=== PATIENT | male | born 1980 | race Caucasian/White ===

== ENCOUNTER 2018-06-04 22:53 | Emergency (ER) | payer SELFPAY ==
[2018-06-04 23:16] VITALS: RESP 18; O2SAT 98; BMI 25.7
--- NOTE | 2018-06-05 01:03 | ED PDOC ---
Arrival/HPI - General Chief Complaint: ENT Problem Time Seen by Provider: 06/04/18 23:18 Historian: Patient - History of Present Illness Narrative History of Present Illness (Text): Willian Holm is a 37 year old male, whose past medical history includes diabetes, who presents to the emergency department after having a reaction to Cetirizine. Patient states he usually feels itchy secondary to allergies and took Cetirizine tonight. Patient states he subsequently began experiencing dry throat with associated dizziness and feeling fatigue after taking the medication. Patient notes he feels much better but was concerned and came to the emergency department for further evaluation. Patient denies any palpitations, chest pain, abdominal pain, shortness of breath, nausea, vomiting, headache, dizziness currently, or any other complaints. Symptom Onset: Gradual Symptom Course: Unchanged Activities at Onset: Light Context: Work Past Medical History - Provider Review Nursing Documentation Reviewed: Yes - Infectious Disease Hx of Infectious Diseases: None - Tetanus Immunization Tetanus Immunization: Unknown - Past Medical History Past Medical History: No Previous - Endocrine/Metabolic Hx Diabetes Mellitus Type 2: Yes - Psychiatric Hx Psychophysiologic Disorder: No Hx Anxiety: No Hx Bipolar Disorder: No Hx Depression: No Hx Emotional Abuse: No Hx Hallucinations: No Hx Panic Disorder: No Hx Post Traumatic Stress Disorder: No Hx Psychosis: No Hx Physical Abuse: No Hx Schizophrenia: No Hx Sexual Abuse: No Hx Substance Use: No - Past Surgical History Past Surgical History: No Previous - Anesthesia Hx Anesthesia: No Hx Anesthesia Reactions: No Hx Malignant Hyperthermia: No - Suicidal Assessment Feels Threatened In Home Enviroment: No Family/Social History - Physician Review Nursing Documentation Reviewed: Yes Family/Social History: Unknown Family HX Smoking Status: Never Smoked Hx Alcohol Use: No Hx Substance Use: No Hx Substance Use Treatment: No Allergies/Home Meds Allergies/Adverse Reactions: Allergies No Known Allergies Allergy (Verified 05/31/14 16:22) Review of Systems - Physician Review All systems were reviewed & negative as marked: Yes - Review of Systems Constitutional: Normal. absent: Fevers Eyes: Normal ENT: Other (+dry throat) Respiratory: Normal Cardiovascular: Palpitations Gastrointestinal: Normal. absent: Abdominal Pain, Diarrhea, Nausea, Vomiting Genitourinary Male: Normal. absent: Dysuria, Frequency, Hematuria, Urinary Output Changes Musculoskeletal: Normal. absent: Back Pain, Neck Pain Skin: Normal. absent: Rash Neurological: Dizziness. absent: Headache Endocrine: Diaphoresis Hemo/Lymphatic: Normal Psychiatric: Normal Physical Exam Vital Signs Reviewed: Yes Vital Signs Pulse Resp BP Pulse Ox 06/04/18 23:11 90 18 128/89 98 Temperature: Afebrile Blood Pressure: Normal Pulse: Regular Respiratory Rate: Normal Appearance: Positive for: Well-Appearing, Non-Toxic, Comfortable Pain Distress: None Mental Status: Positive for: Alert and Oriented X 3 - Systems Exam Head: Present: Atraumatic, Normocephalic Pupils: Present: PERRL Extroacular Muscles: Present: EOMI Conjunctiva: Present: Normal Mouth: Present: Moist Mucous Membranes Neck: Present: Normal Range of Motion Respiratory/Chest: Present: Clear to Auscultation, Good Air Exchange. No: Respiratory Distress, Accessory Muscle Use Cardiovascular: Present: Regular Rate and Rhythm, Normal S1, S2. No: Murmurs Abdomen: No: Tenderness, Distention, Peritoneal Signs Back: Present: Normal Inspection Upper Extremity: Present: Normal Inspection. No: Cyanosis, Edema Lower Extremity: Present: Normal Inspection. No: Edema Neurological: Present: GCS=15, CN II-XII Intact, Speech Normal Skin: Present: Warm, Dry, Normal Color. No: Rashes Psychiatric: Present: Alert, Oriented x 3, Normal Insight, Normal Concentration Medical Decision Making ED Course and Treatment: Impression: 37 year old male complaining of dizziness, palpitations, diaphoresis, and dry throat after taking Cetirizine. Pt feels better currently Plan: -- EKG -- Fingerstick glucose -- Reassess and disposition Progress Notes: reviewed EKG, NSR at [address]-segment elevations or depressions, no T-wave inversions, normal intervals. Fingerstick glucose: 185. On reevaluation, patient reports no headache, dizziness, CP, SOB, or palpitations. On exam, patient remains awake alert and oriented 3 in no acute distress. Repeat neuro exam shows no focal findings. Advised to follow up with the clinic in 1-2 days without fail. Return to the emergency room at any time for any new or worsening symptoms. Patient states he fully agrees with and understands discharge instructions. States that he agrees with the plan and disposition. Verbalized and repeated discharge instructions and plan. I have given the patient opportunity to ask any additional questions. - EKG Interpretation Interpreted by ED Physician: Yes Type: 12 lead EKG - PA / CELERY CUTTER / Resident Statement MD/DO has reviewed & agrees with the documentation as recorded. - Scribe Statement The provider has reviewed the documentation as recorded by the Carinaiblino Saini Provider Scribe Attestation: All medical record entries made by the Scribe were at my direction and personally dictated by me. I have reviewed the chart and agree that the record accurately reflects my personal performance of the history, physical exam, medical decision making, and the department course for this patient. I have also personally directed, reviewed, and agree with the discharge instructions and disposition. Disposition/Present on Arrival - Present on Arrival Any Indicators Present on Arrival: No History of DVT/PE: No History of Uncontrolled Diabetes: No Urinary Catheter: No History of Decub. Ulcer: No History Surgical Site Infection Following: None - Disposition Have Diagnosis and Disposition been Completed?: Yes Diagnosis: Medication side effect Disposition: HOME/ ROUTINE Disposition Time: 00:45 Patient Plan: Discharge Condition: STABLE Discharge Instructions (ExitCare): Side Effects From Medicines Print Language: KUWAIT[place] Additional Instructions: Thank you for letting us take care of you today. You were treated for medication side effect. The emergency medical care you received today was directed at your acute symptoms. Return to the Emergency Department if your symptoms worsen, do not improve, or if you have any other problems. Please contact your doctor or referral provided in 2 days for re-evaluation and follow up. Bring any paperwork you were given at discharge with you along with any medications you are taking to your follow up visit. Our treatment cannot replace ongoing medical care by a primary care provider (PCP) outside of the emergency department. Thank you for allowing the [facility] team to be part of your care today. Referrals: [facility] at [facility] [place] [Outside] - Follow up with primary Forms: [employer] (Chadian), WORK NOTE
[2018-06-05 01:26] VITALS: BP 112/74; PULSE 80; TEMP 98
--- NOTE | 2018-06-05 20:53 | CARD ---
APPROVED REPORT Date of service: 06/05/2018 EKG Measurement Heart [id number] <Conclusion> Normal sinus rhythm Possible Left atrial enlargement Borderline ECG
== END 2018-06-05 00:50 | disposition home or self-care (01) ==
LOC: ED 22:53
DX: R42 Dizziness and giddiness (principal); R53.83 Other fatigue; T45.0X5A Adverse effect of antiallergic and antiemetic drugs, initial encounter; E11.9 Type 2 diabetes mellitus without complications

== ENCOUNTER 2018-07-17 20:55 | Observation (INO) | payer MEDICAID, OTHER ==
[2018-07-17 21:05] VITALS: BMI 28.3
--- NOTE | 2018-07-17 21:48 | ED PDOC ---
Arrival/HPI - General Chief Complaint: Chest Pain Time Seen by Provider: 07/17/18 21:14 Historian: Patient - History of Present Illness Narrative History of Present Illness (Text): 07/17/18 21:37 37 y/o M with PMh of diabetes presents with cc of intermittent chest discomfort w/ palpations throughout today. Patient reports that he took a green pill earlier today that was meant to treat an upset stomach. The green pill provided no relief. Patient denies any fevers, chills, headache, dizziness, shortness of breath, dyspnea on exertion, cough, diaphoresis, abdominal pain, nausea, vomiting, diarrhea, back pain, neck pain, or any other complaint. Time/Duration: 24 hours Symptom Onset: Gradual Symptom Course: Intermittent Activities at Onset: Light Context: Home Past Medical History - Provider Review Nursing Documentation Reviewed: Yes - Infectious Disease Hx of Infectious Diseases: None - Tetanus Immunization Tetanus Immunization: Unknown - Past Medical History Past Medical History: No Previous - Cardiac Hx Cardiac Disorders: No - Pulmonary Hx Respiratory Disorders: No - Neurological Hx Neurological Disorder: No - HEENT Hx HEENT Disorder: No - Renal Hx Renal Disorder: No - Endocrine/Metabolic Hx Diabetes Mellitus Type 2: Yes - Hematological/Oncological Hx Blood Disorders: No - Musculoskeletal/Rheumatological Hx Musculoskeletal Disorders: No - Gastrointestinal Hx Gastrointestinal Disorders: No - Genitourinary/Gynecological Hx Genitourinary Disorders: No - Psychiatric Hx Psychophysiologic Disorder: No Hx Anxiety: No Hx Bipolar Disorder: No Hx Depression: No Hx Emotional Abuse: No Hx Hallucinations: No Hx Panic Disorder: No Hx Post Traumatic Stress Disorder: No Hx Psychosis: No Hx Physical Abuse: No Hx Schizophrenia: No Hx Sexual Abuse: No Hx Substance Use: No - Past Surgical History Past Surgical History: No Previous - Anesthesia Hx Anesthesia: No Hx Anesthesia Reactions: No Hx Malignant Hyperthermia: No - Suicidal Assessment Feels Threatened In Home Enviroment: No Family/Social History - Physician Review Nursing Documentation Reviewed: Yes Family/Social History: No Known Family HX Smoking Status: Never Smoked Hx Alcohol Use: No Hx Substance Use: No Hx Substance Use Treatment: No Allergies/Home Meds Allergies/Adverse Reactions: Allergies No Known Allergies Allergy (Verified 05/31/14 16:22) Review of Systems - Physician Review All systems were reviewed & negative as marked: Yes - Review of Systems Constitutional: Normal Eyes: Normal ENT: Normal Respiratory: Normal Cardiovascular: Palpitations (Intermittent ) Gastrointestinal: Normal Genitourinary Male: Normal Musculoskeletal: Normal Skin: Normal Neurological: Normal Endocrine: Normal Hemo/Lymphatic: Normal Psychiatric: Normal Physical Exam Vital Signs Reviewed: Yes Vital Signs Pulse Resp BP Pulse Ox 07/17/18 21:05 94 H 20 141/94 H 96 Temperature: Afebrile Blood Pressure: Normal Pulse: Tachycardic Respiratory Rate: Normal Appearance: Positive for: Well-Appearing, Non-Toxic, Comfortable Pain Distress: Mild Mental Status: Positive for: Alert and Oriented X 3 Finger Stick Blood Glucose: 207 - Systems Exam Head: Present: Atraumatic, Normocephalic Pupils: Present: PERRL Extroacular Muscles: Present: EOMI Conjunctiva: Present: Normal Mouth: Present: Moist Mucous Membranes Neck: Present: Normal Range of Motion Respiratory/Chest: Present: Clear to Auscultation, Good Air Exchange. No: Respiratory Distress, Accessory Muscle Use Cardiovascular: Present: Regular Rate and Rhythm, Normal S1, S2. No: Murmurs Abdomen: No: Tenderness, Distention, Peritoneal Signs Back: Present: Normal Inspection Upper Extremity: Present: Normal Inspection. No: Cyanosis, Edema Lower Extremity: Present: Normal Inspection. No: Edema Neurological: Present: GCS=15, Speech Normal Skin: Present: Warm, Dry, Normal Color. No: Rashes Psychiatric: Present: Alert, Oriented x 3, Normal Insight, Normal Concentration Medical Decision Making ED Course and Treatment: 07/17/18 21:00 Impression: 37 y/o M presents with cc of intermittent chest discomfort w/ palpations throughout today Differential Diagnosis included but are not limited to: -- CAD -- Gastritis -- GERD -- Pneumonia Plan: -- Labs -- EKG -- CXR -- Reassess and disposition Prior Visits: Notes and results from previous visits were reviewed. Progress Notes: 07/17/18 23:34 Case discussed with medical office receptionist and hospitalist, who accepts patient to the hospitalist's service - EKG Interpretation EKG Interpretation (Text): 07/17/18 21:02 EKG: NSR @ [address]/T wave changes. Interpreted by me. Interpreted by ED Physician: Yes Type: 12 lead EKG - PA / [employer] / Resident Statement MD/DO has reviewed & agrees with the documentation as recorded. - Scribe Statement The provider has reviewed the documentation as recorded by the Vidal Bear All medical record entries made by the Vidal were at my direction and personally dictated by me. I have reviewed the chart and agree that the record accurately reflects my personal performance of the history, physical exam, medical decision making, and the department course for this patient. I have also personally directed, reviewed, and agree with the discharge instructions and disposition. Disposition/Present on Arrival - Present on Arrival Any Indicators Present on Arrival: No History of DVT/PE: No History of Uncontrolled Diabetes: No Urinary Catheter: No History of Decub. Ulcer: No History Surgical Site Infection Following: None - Disposition Have Diagnosis and Disposition been Completed?: Yes Diagnosis: Chest pain Disposition: HOSPITALIZED Disposition Time: 23:40 Patient Plan: Observation Condition: STABLE Discharge Instructions (ExitCare): Chest Pain (ED) Referrals: PCP,NO [Primary Care Provider] - Follow up with primary Forms: [employer] (Korean)
[2018-07-17 22:00] LABS: HEMOGLOBIN 13.9 g/dL (14.0-18.0); MEAN CELL VOLUME 83.8 fl (80.0-105.0); MEAN CORPUSCULAR HEMOGLOBIN 28.1 pg (25.0-35.0); MEAN CORPUSCULAR HGB CONC 33.6 g/dl (31.0-37.0); MEAN PLATELET VOLUME 11.5 fl (7.0-11.0); RBC 4.94 10^6/uL (3.5-6.1); RED CELL DISTRIBUTION WIDTH 13.8 % (11.5-14.5); WHITE BLOOD COUNT 9.4 10^3/uL (4.5-11.0)
[2018-07-17 22:06] LABS: INR 1.05; PROTHROMBIN TIME 11.6 SECONDS (9.4-12.5)
[2018-07-17 22:08] LABS: ALB/GLOB RATIO 1.3 (1.1-1.8); ALBUMIN 4.4 g/dL (3.0-4.8); ALT/SGPT 28 U/L (7-56); AST/SGOT 35 U/L (17-59); BLOOD UREA NITROGEN 18 mg/dL (7-21); CALCIUM 9.2 mg/dL (8.4-10.5); GFR NON-AFRICAN AMERICAN > 60
[2018-07-17 22:19] LABS: TROPONIN I < 0.01 ng/mL
[2018-07-18 00:36] VITALS: O2SAT 97
--- NOTE | 2018-07-18 02:11 | CP.PCM.HP ---
<Juliano Alfredo - Last Filed: 07/18/18 03:27> History of Present Illness - History of Present Illness History of Present Illness: PGY-[address] and Physical [address] Mcmillan Patient is a 37 year old male with PMHx DM who presents with complaint of chest pain that began today. Patient states pain is in whole chest, feels like burning sensation, does not radiate to back or shoulders. Patient also states having occasional palpitations which come and go. Patient states he had similar symptoms in May for which he came to ER and was treated and discharged. Patient is a poor historian, accurate history difficult to obtain. Patient denies shortness of breath, abdominal pain, nausea, vomiting. Patient denies smoking, personal or family hx of cardiopulm disease. PMHx: DM All: NKA Surgeries: No prior surgeries Medications: Metformin Family Hx: No known family cardiac or other medical history Social: Denies alcohol, tobacco, drug use. Works in [employer]. PMD: None Present on Admission - Present on Admission Any Indicators Present on Admission: No Review of Systems - Constitutional Constitutional: absent: Chills, Fever - EENT Eyes: absent: Diplopia Ears: absent: Dizziness Nose/Mouth/Throat: absent: Nasal Congestion, Nasal Discharge - Cardiovascular Cardiovascular: Chest Pain, Chest Pain at Rest. absent: Chest Pain with Activity, Dyspnea, Dyspnea on Exertion, Edema, Palpitations - Respiratory Respiratory: absent: Cough, Dyspnea, Hemoptysis - Gastrointestinal Gastrointestinal: absent: Constipation, Diarrhea, Nausea, Vomiting - Genitourinary Genitourinary: absent: Dysuria, Flank Pain - Musculoskeletal Musculoskeletal: absent: Numbness, Stiffness, Tingling - Neurological Neurological: absent: Confusion, Dizziness, Numbness - Psychiatric Psychiatric: absent: Anxiety, Depression Past Patient History - Infectious Disease Hx of Infectious Diseases: None - Tetanus Immunizations Tetanus Immunization: Unknown - Past Social History Smoking Status: Unknown If Ever Smoked - CARDIAC Hx Cardiac Disorders: No - PULMONARY Hx Respiratory Disorders: No - NEUROLOGICAL Hx Neurological Disorder: No - HEENT Hx HEENT Problems: No - RENAL Hx Chronic Kidney Disease: No - ENDOCRINE/METABOLIC Hx Endocrine Disorders: Yes Hx Diabetes Mellitus Type 2: Yes - HEMATOLOGICAL/ONCOLOGICAL Hx Blood Disorders: No - MUSCULOSKELETAL/RHEUMATOLOGICAL Hx Musculoskeletal Disorders: No Hx Falls: No - GASTROINTESTINAL Hx Gastrointestinal Disorders: No - GENITOURINARY/GYNECOLOGICAL Hx Genitourinary Disorders: No - PSYCHIATRIC Hx Psychophysiologic Disorder: No Hx Anxiety: No Hx Bipolar Disorder: No Hx Depression: No Hx Emotional Abuse: No Hx Hallucinations: No Hx Panic Symptoms: No Hx Post Traumatic Stress Disorder: No Hx Psychosis: No Hx Physical Abuse: No Hx Schizophrenia: No Hx Sexual Abuse: No Hx Substance Use: No (denies) - SURGICAL HISTORY Hx Surgeries: No - ANESTHESIA Hx Anesthesia: No Hx Anesthesia Reactions: No Hx Malignant Hyperthermia: No Meds Allergies/Adverse Reactions: Allergies Allergy/AdvReac Type Severity Reaction Status Date / Time No Known Allergies Allergy Verified 05/31/14 16:22 Physical Exam - Constitutional Appears: Non-toxic, No Acute Distress - Head Exam Head Exam: ATRAUMATIC - Eye Exam Eye Exam: EOMI, Normal appearance - ENT Exam ENT Exam: Mucous Membranes Moist - Respiratory Exam Respiratory Exam: Clear to Auscultation Bilateral, NORMAL BREATHING PATTERN. absent: Rhonchi, Wheezes - Cardiovascular Exam Cardiovascular Exam: REGULAR RHYTHM, +S1, +S2 Additional comments: Chest pain non reproducible - no tenderness to palpation - GI/Abdominal Exam GI & Abdominal Exam: Normal Bowel Sounds, Soft. absent: Tenderness - Extremities Exam Extremities exam: Positive for: normal inspection. Negative for: pedal edema, tenderness - Neurological Exam Neurological exam: Alert, CN II-XII Intact, Oriented x3 - Psychiatric Exam Psychiatric exam: Normal Affect, Normal Mood - Skin Skin Exam: Dry, Intact Results - Vital Signs Recent Vital Signs: Last Vital Signs Temp Pulse 80 07/18/18 01:19 Resp 20 07/18/18 01:19 BP 134/81 07/18/18 00:56 Pulse Ox 97 07/18/18 00:56 - Labs Result Diagrams: 07/17/18 21:05 07/17/18 21:05 Labs: Laboratory Results - last 24 hr 07/17/18 07/17/18 07/17/18 21:05 21:05 21:05 WBC 9.4 RBC 4.94 Hgb 13.9 L Hct 41.4 L MCV 83.8 MCH 28.1 MCHC 33.6 RDW 13.8 Plt Count 188 MPV 11.5 H PT 11.6 INR 1.05 APTT 33.0 Sodium 138 Potassium 3.5 L Chloride 105 Carbon Dioxide 23 Anion Gap 14 BUN 18 Creatinine 0.8 Est GFR ( Amer) > 60 Est GFR (Non-Af Amer) > 60 Random Glucose 199 H Calcium 9.2 Total Bilirubin 0.7 AST 35 ALT 28 Alkaline Phosphatase 103 Lactate Dehydrogenase 504 Total Creatine Kinase 181 Troponin I < 0.01 Total Protein 8.0 Albumin 4.4 Globulin 3.5 Albumin/Globulin Ratio 1.3 Assessment & Plan - Assessment and Plan (Free Text) Assessment: Chest pain/Palpitations, rule out ACS -Initial EKG NSR @ [address]/T wave changes. -Chest XR - read pending -Cardiology consult, Dr. Wilcox -f/u recs -F/u serial EKG/ROMIs 0300, 0900 -ASA 81 mg PO daily --ASA 325mg PO given once in ED -TSH/T4 -UDS DM -Home metformin held -ISS -Accuchecks ACHS -Carb consistent diet -Hypoglycemia protocol -A1C - f/u -Lipid panel - f/u PPx -DVT: Lovenox 30 mg SC daily -Carb consistent diet <Alcira Mcmillan - Last Filed: 07/18/18 06:34> Results - Vital Signs Recent Vital Signs: Last Vital Signs Temp Pulse 67 07/18/18 02:00 Resp 20 07/18/18 01:19 BP 134/81 07/18/18 00:56 Pulse Ox 97 07/18/18 00:56 - Labs Result Diagrams: 07/17/18 21:05 07/17/18 21:05 Labs: Laboratory Results - last 24 hr 07/17/18 07/17/18 07/17/18 21:05 21:05 21:05 WBC 9.4 RBC 4.94 Hgb 13.9 L Hct 41.4 L MCV 83.8 MCH 28.1 MCHC 33.6 RDW 13.8 Plt Count 188 MPV 11.5 H PT 11.6 INR 1.05 APTT 33.0 Sodium 138 Potassium 3.5 L Chloride 105 Carbon Dioxide 23 Anion Gap 14 BUN 18 Creatinine 0.8 Est GFR ( Amer) > 60 Est GFR (Non-Af Amer) > 60 POC Glucose (mg/dL) Random Glucose 199 H Calcium 9.2 Total Bilirubin 0.7 AST 35 ALT 28 Alkaline Phosphatase 103 Lactate Dehydrogenase 504 Total Creatine Kinase 181 Troponin I < 0.01 Total Protein 8.0 Albumin 4.4 Globulin 3.5 Albumin/Globulin Ratio 1.3 07/17/18 21:35 WBC RBC Hgb Hct MCV MCH MCHC RDW Plt Count MPV PT INR APTT Sodium Potassium Chloride Carbon Dioxide Anion Gap BUN Creatinine Est GFR ( Amer) Est GFR (Non-Af Amer) POC Glucose (mg/dL) 207 H Random Glucose Calcium Total Bilirubin AST ALT Alkaline Phosphatase Lactate Dehydrogenase Total Creatine Kinase Troponin I Total Protein Albumin Globulin Albumin/Globulin Ratio Attending/Attestation - Attestation I have personally seen and examined this patient.: Yes I have fully participated in the care of the patient.: Yes I have reviewed all pertinent clinical information: Yes Notes (Text): 07/18/18 06:34 seen and examined. Discussed with resident. A&P as above.
[2018-07-18] MEDS ORDERED: Potassium Chloride 40 mEq/30 ml LIQ UD PO ONE (05:08)
[2018-07-18 07:13] LABS: BASO # 0.02 K/mm3 (0.0-2.0); BASO % 0.2 % (0.0-3.0); EOS # 0.2 (0.0-0.7); EOS % 2.9 % (1.5-5.0); HEMOGLOBIN 13.9 g/dL (14.0-18.0); LYMPH # 3.3 (1.2-3.4); LYMPH % 39.6 % (22.0-35.0); MEAN CORPUSCULAR HEMOGLOBIN 27.7 pg (25.0-35.0); MEAN CORPUSCULAR HGB CONC 33.4 g/dl (31.0-37.0); MEAN PLATELET VOLUME 11.8 fl (7.0-11.0); MONO # 0.6 (0.1-0.6); MONO % 7.2 % (1.0-6.0); RBC 5.01 10^6/uL (3.5-6.1); RED CELL DISTRIBUTION WIDTH 13.7 % (11.5-14.5); WHITE BLOOD COUNT 8.3 10^3/uL (4.5-11.0)
[2018-07-18 07:18] LABS: ALB/GLOB RATIO 1.2 (1.1-1.8); ALBUMIN 4.1 g/dL (3.0-4.8); ALT/SGPT 33 U/L (7-56); AST/SGOT 30 U/L (17-59); BLOOD UREA NITROGEN 16 mg/dL (7-21); CALCIUM 9.2 mg/dL (8.4-10.5); GFR NON-AFRICAN AMERICAN > 60; HDL CHOLESTEROL 25 mg/dL (29-60)
[2018-07-18 07:31] LABS: LDL CHOLESTEROL 98 mg/dL (0-129)
[2018-07-18] MEDS: Insulin Regular 1 UNITS/0.01 ML ML SC SCH ×3 (08:06→17:16)
[2018-07-18] MEDS ORDERED: Potassium Chloride 20 mEq/15 ml LIQ UD PO ONE (08:30)
--- NOTE | 2018-07-18 09:21 | RAD ---
Date of service: 07/17/2018 HISTORY: chest pain COMPARISON: No prior. TECHNIQUE: 1 view obtained. FINDINGS: LUNGS: No active pulmonary disease. PLEURA: No significant pleural effusion identified, no pneumothorax apparent. CARDIOVASCULAR: No aortic atherosclerotic calcification present. Normal cardiac size. No pulmonary vascular congestion. OSSEOUS STRUCTURES: No significant abnormalities. VISUALIZED UPPER ABDOMEN: Normal. OTHER FINDINGS: None. IMPRESSION: No active disease.
[2018-07-18 09:31] LABS: TROPONIN I < 0.01 ng/mL
--- NOTE | 2018-07-18 09:31 | CARD ---
APPROVED REPORT Date of service: 07/17/2018 EKG Measurement Heart [id number] <Conclusion> Normal sinus rhythm Normal Electrocardiogram
--- NOTE | 2018-07-18 09:53 | CARD ---
APPROVED REPORT Date of service: 07/18/2018 EKG Measurement Heart [id number] <Conclusion> Normal sinus rhythm Normal ECG
[2018-07-18] MEDS ORDERED: Enoxaparin 30 mg Syringe SC SCH (10:00)
[2018-07-18] MEDS ORDERED: Enoxaparin 40 mg Syringe SC SCH (10:00)
[2018-07-18 12:27] VITALS: BP 125/78; RESP 18; TEMP 98.4
--- NOTE | 2018-07-18 12:57 | CP.PCM.PN ---
<Luis Layne - Last Filed: 07/18/18 12:59> Subjective - Date & Time of Evaluation Date of Evaluation: 07/18/18 Time of Evaluation: 12:54 - Subjective Subjective: Medicine Progress Note for Dr. Li 37M seen and evaluated at bedside this morning. No acute events overnight. Stages his chest pain has improved however complaining of dizziness. Herminio- hallpike done at bedside and found to be positive for BPPV. Upon questioning, cee marcelino states he takes Meclizine but unknown dosage and cannot recall pharmacy name. Otherwise, denies f/c, n/v/d, SOB, CP, or urinary symptoms. Objective - Vital Signs/Intake and Output Vital Signs (last 24 hours): Temp Pulse Resp BP Pulse Ox 98.4 F 84 18 125/78 97 07/18/18 12:00 07/18/18 12:00 07/18/18 12:00 07/18/18 12:00 07/18/18 00:56 Intake and Output: 07/18/18 07/18/18 06:59 18:59 Intake Total 0 Balance 0 - Medications Medications: Current Medications Aspirin (Ecotrin) 81 mg PO DAILY PENDING SALE TO [facility] Last Admin: 07/18/18 10:27 Dose: 81 mg Dextrose (Dextrose 50% Inj) 0 ml IV STAT PRN; Protocol PRN Reason: Hypoglycemia Protocol Enoxaparin Sodium (Lovenox) 40 mg SC DAILY PENDING SALE TO [facility]; Protocol Last Admin: 07/18/18 10:28 Dose: 40 mg Dextrose (Dextrose 5% In Water 1000 Ml) 1,000 mls @ 0 mls/hr IV .Q0M PRN; Protocol PRN Reason: Hypoglycemia Protocol Insulin Human Regular (Humulin R) 0 units SC ACHS PENDING SALE TO [facility]; Protocol Last Admin: 07/18/18 08:06 Dose: Not Given Meclizine HCl (Antivert) 12.5 mg PO DAILY PENDING SALE TO [facility] - Labs Labs: 07/18/18 06:30 07/18/18 06:30 PT 11.6 SECONDS (9.4-12.5) 07/17/18 21:05 INR 1.05 07/17/18 21:05 APTT 33.0 Seconds (26.9-38.3) 07/17/18 21:05 - Constitutional Appears: Well, Non-toxic, No Acute Distress - Head Exam Head Exam: ATRAUMATIC, NORMAL INSPECTION, NORMOCEPHALIC - Eye Exam Eye Exam: EOMI - ENT Exam ENT Exam: Mucous Membranes Moist - Respiratory Exam Respiratory Exam: NORMAL BREATHING PATTERN. absent: Wheezes, Respiratory Distress - Cardiovascular Exam Cardiovascular Exam: REGULAR RHYTHM, +S1, +S2. absent: Tachycardia, Murmur - GI/Abdominal Exam GI & Abdominal Exam: Soft, Normal Bowel Sounds. absent: Tenderness - Extremities Exam Extremities Exam: Normal Inspection. absent: Calf Tenderness, Pedal Edema - Neurological Exam Neurological Exam: Alert, Awake, Oriented x3 Additional comments: horizontal nystagmus with herminio-hallpike maneuver - Psychiatric Exam Psychiatric exam: Normal Affect, Normal Mood - Skin Skin Exam: Dry, Intact, Normal Color, Warm Assessment and Plan - Assessment and Plan (Free Text) Assessment: 37M, PMH of DM, admitted with chest pain Plan: Chest Pain - Initial EKG NSR @ [address]/T wave changes - Repeat EKG: normal sinus rhythm - Chest XR: no active disease - Trop negative x2 - Lipid panel wnl - TSH/T4 wnl - ASA 81 mg PO daily - Cardiology, consulted pending recommendations Benign Paroxysmal Positional Vertigo - Positive horizontal nystagmus on [place] Hallpike maneuver - Positive orthostatics - Reviewed medications, no medication interactions to cause/exacerbate symptoms - Maintain fluid hydration - No sudden change in position; advised to sit up slowly and then stand to ensure balance - Magan stockings - Meclizine 12.5mg PO QD - Pending CT head Diabetes Mellitus - Home metformin held - ISS - Accuchecks ACHS - Carb consistent diet - Hypoglycemia protocol - A1C 7.1 - Diabetic education referral Hypokalemia - K 3.4 today - Replete electrolytes as needed PPX DVT: Lovenox GI: Not indicated Patient plan reviewed and discussed with Dr. Jen Layne PGY1 <Thao Li - Last Filed: 07/18/18 13:30> Objective - Vital Signs/Intake and Output Vital Signs (last 24 hours): Temp Pulse Resp BP Pulse Ox 98.4 F 84 18 125/78 97 07/18/18 12:00 07/18/18 12:00 07/18/18 12:00 07/18/18 12:00 07/18/18 00:56 Intake and Output: 07/18/18 07/18/18 06:59 18:59 Intake Total 0 Balance 0 - Medications Medications: Current Medications Aspirin (Ecotrin) 81 mg PO DAILY PENDING SALE TO [facility] Last Admin: 07/18/18 10:27 Dose: 81 mg Dextrose (Dextrose 50% Inj) 0 ml IV STAT PRN; Protocol PRN Reason: Hypoglycemia Protocol Enoxaparin Sodium (Lovenox) 40 mg SC DAILY PENDING SALE TO [facility]; Protocol Last Admin: 07/18/18 10:28 Dose: 40 mg Dextrose (Dextrose 5% In Water 1000 Ml) 1,000 mls @ 0 mls/hr IV .Q0M PRN; Protocol PRN Reason: Hypoglycemia Protocol Insulin Human Regular (Humulin R) 0 units SC ACHS PENDING SALE TO [facility]; Protocol Last Admin: 07/18/18 12:59 Dose: Not Given Meclizine HCl (Antivert) 12.5 mg PO DAILY PENDING SALE TO [facility] Last Admin: 07/18/18 13:20 Dose: 12.5 mg - Labs Labs: 07/18/18 06:30 07/18/18 06:30 PT 11.6 SECONDS (9.4-12.5) 07/17/18 21:05 INR 1.05 07/17/18 21:05 APTT 33.0 Seconds (26.9-38.3) 07/17/18 21:05 Attending/Attestation - Attestation I have personally seen and examined this patient.: Yes I have fully participated in the care of the patient.: Yes I have reviewed all pertinent clinical information, including history, physical exam and plan: Yes Notes (Text): 07/18/18 13:27 37 year old male with past medical history of diabetes who presented with complaint of chest pain and dizziness. Serial cardiac enzymes so far are negative. Chest pain is resolved. Cardiology evaluation is pending. Patient still complains of dizziness. Orthostatics, PT evaluation and CT head are ordered. Trial of meclizine. Will replete and repeat lytes (potassium). Continue with insulin ss for diabetes. Thao Li MD Hospitalist.
--- NOTE | 2018-07-18 14:04 | CARD ---
APPROVED REPORT Date of service: 07/18/2018 EKG Measurement Heart [id number] <Conclusion> Normal sinus rhythm Normal ECG
--- NOTE | 2018-07-18 14:05 | CT ---
Date of service: 07/18/2018 PROCEDURE: CT HEAD WITHOUT CONTRAST. HISTORY: dizziness, High fall risk COMPARISON: None available. TECHNIQUE: Axial computed tomography images were obtained through the head/brain without intravenous contrast. Radiation dose: Total exam DLP = 971.11 mGy-cm. This CT exam was performed using one or more of the following dose reduction techniques: Automated exposure control, adjustment of the mA and/or kV according to patient size, and/or use of iterative reconstruction technique. FINDINGS: HEMORRHAGE: No intracranial hemorrhage. BRAIN: No mass effect or edema. No atrophy or chronic microvascular ischemic changes. VENTRICLES: Unremarkable. No hydrocephalus. CALVARIUM: Unremarkable. PARANASAL SINUSES: Unremarkable as visualized. No significant inflammatory changes. MASTOID AIR CELLS: Unremarkable as visualized. No inflammatory changes. OTHER FINDINGS: None. IMPRESSION: No acute findings
[2018-07-18 14:46] LABS: TROPONIN I < 0.01 ng/mL
--- NOTE | 2018-07-18 15:46 | CP.PCM.DIS ---
<Luis Layne - Last Filed: 07/18/18 16:15> Provider - Provider Date of Admission: 07/17/18 23:36 Attending physician: Thao Li MD Primary care physician: NO PRIMARY CARE PROVIDER Consults: 07/18/18 01:05 Cardiology Consult Routine Comment: Consulting Provider: Pasquale Wilcox Consulting Physician: Pasquale Wilcox Reason for Consult: Chest Pain, r/o ACS 07/18/18 12:53 Diabetic Education Referral Routine Comment: Physician Instructions: Reason For Exam: assess medication compliance, understanding of DM Time Spent in preparation of Discharge (in minutes): 60 Hospital Course - Lab Results Lab Results: Most Recent Lab Values WBC 8.3 10^3/uL (4.5-11.0) 07/18/18 06:30 RBC 5.01 10^6/uL (3.5-6.1) 07/18/18 06:30 Hgb 13.9 g/dL (14.0-18.0) L 07/18/18 06:30 Hct 41.6 % (42.0-52.0) L 07/18/18 06:30 MCV 83.0 fl (80.0-105.0) 07/18/18 06:30 MCH 27.7 pg (25.0-35.0) 07/18/18 06:30 MCHC 33.4 g/dl (31.0-37.0) 07/18/18 06:30 RDW 13.7 % (11.5-14.5) 07/18/18 06:30 Plt Count 186 10^3/uL (120.0-450.0) 07/18/18 06:30 MPV 11.8 fl (7.0-11.0) H 07/18/18 06:30 Neut % (Auto) 50.1 % (50.0-68.0) 07/18/18 06:30 Lymph % (Auto) 39.6 % (22.0-35.0) H 07/18/18 06:30 Cecil % (Auto) 7.2 % (1.0-6.0) H 07/18/18 06:30 Eos % (Auto) 2.9 % (1.5-5.0) 07/18/18 06:30 Baso % (Auto) 0.2 % (0.0-3.0) 07/18/18 06:30 Lymph # (Auto) 3.3 (1.2-3.4) 07/18/18 06:30 Cecil # (Auto) 0.6 (0.1-0.6) 07/18/18 06:30 Eos # (Auto) 0.2 (0.0-0.7) 07/18/18 06:30 Baso # (Auto) 0.02 K/mm3 (0.0-2.0) 07/18/18 06:30 Absolute Neuts (auto) 4.17 (1.4-6.5) 07/18/18 06:30 PT 11.6 SECONDS (9.4-12.5) 07/17/18 21:05 INR 1.05 07/17/18 21:05 APTT 33.0 Seconds (26.9-38.3) 07/17/18 21:05 Sodium 141 mmol/L (132-148) 07/18/18 06:30 Potassium 3.4 mmol/L (3.6-5.0) L 07/18/18 06:30 Chloride 107 mmol/L (98-107) 07/18/18 06:30 Carbon Dioxide 26 mmol/L (21-33) 07/18/18 06:30 Anion Gap 12 (10-20) 07/18/18 06:30 BUN 16 mg/dL (7-21) 07/18/18 06:30 Creatinine 0.7 mg/dl (0.8-1.5) L 07/18/18 06:30 Est GFR ( Amer) > 60 07/18/18 06:30 Est GFR (Non-Af Amer) > 60 07/18/18 06:30 POC Glucose (mg/dL) 207 mg/dL (65-110) H 07/17/18 21:35 Random Glucose 124 mg/dL (70-110) H 07/18/18 06:30 Hemoglobin A1c 7.1 % (4.2-6.5) H 07/18/18 06:30 Calcium 9.2 mg/dL (8.4-10.5) 07/18/18 06:30 Total Bilirubin 0.7 mg/dL (0.2-1.3) 07/18/18 06:30 AST 30 U/L (17-59) 07/18/18 06:30 ALT 33 U/L (7-56) 07/18/18 06:30 Alkaline Phosphatase 93 U/L (38-126) 07/18/18 06:30 Lactate Dehydrogenase 411 U/L (333-699) 07/18/18 14:00 Total Creatine Kinase 97 U/L (35-230) 07/18/18 14:00 Troponin I < 0.01 ng/mL 07/18/18 14:00 Total Protein 7.6 g/dL (5.8-8.3) 07/18/18 06:30 Albumin 4.1 g/dL (3.0-4.8) 07/18/18 06:30 Globulin 3.4 gm/dL 07/18/18 06:30 Albumin/Globulin Ratio 1.2 (1.1-1.8) 07/18/18 06:30 Triglycerides 212 mg/dL (35-160) H 07/18/18 06:30 Cholesterol 153 mg/dL (130-200) 07/18/18 06:30 LDL Cholesterol Direct 98 mg/dL (0-129) 07/18/18 06:30 HDL Cholesterol 25 mg/dL (29-60) L 07/18/18 06:30 Thyroxine (T4) 10.4 ug/dL (5.5-11.0) 07/18/18 06:30 TSH 3rd Generation 2.22 mIU/mL (0.46-4.68) 07/18/18 06:30 - Hospital Course Hospital Course: 37 year old male welsh speaking, with a past medical history of DM, presented with complaint of chest pain that began yesterday. Patient endorsed a burning sensation across his entire chest that did not radiate. He also admitted to palpitations. He had similar symptoms in May for which he came to the emergency room and was treated conservatively and discharged. Patient denied fever, chills, nausea, vomiting, diarrhea, headaches, shortness of breath, abdominal pain, or urinary symptoms. In the ED, EKG showed HR@91 with NSR. CXR showed no active disease. Given one dose Aspirin 325. Patient was admitted for observation and cardiac work-up for ACS rule out. Troponins were trended and negative x3. Aspirin 81mg was given daily. Cardiology was consulted and recommended an outpatient stress test [place] a later date [place] [facility] [place] Patient's labs including Lipid panel, TSH, T4CBC and CMP were within normal limits. Electrolytes were repleted as needed. His home metformin was placed on hold and started on a insulin sliding scale for diabetes. A Diabetes education referral was also ordered. Patient kept on a carb-consistent diet. Patient complained of dizziness for while a [place]-hallpike maneuver was done showing horizontal nystagmus. Orthostatis were positive. Patient found to have BPPV and given Meclizine 12.5mg BID. Instructions given to be aware of medications taken, maintain adequate hydration, get up slowly from lying position and do not make sudden positional changes. Physical therapy also saw patient and walked with him and cleared him to ambulate on his own. Patient instructed to follow up with his PMD regarding further management of Diabetes and BPPV. Patient acknowledged and verbalized understanding of treatment plan. Instructions and follow up appointments were provided. All questions and concerns were addressed. Above is a brief summary, for a detailed hospital course, please refer to medical records. - Date & Time of H&P Date of H&P: 07/18/18 Time of H&P: 21:36 Discharge Exam - Head Exam Head Exam: ATRAUMATIC, NORMAL INSPECTION, NORMOCEPHALIC - Eye Exam Eye Exam: EOMI - ENT Exam ENT Exam: Mucous Membranes Moist - Respiratory Exam Respiratory Exam: NORMAL BREATHING PATTERN. absent: Wheezes, Respiratory Distress - Cardiovascular Exam Cardiovascular Exam: REGULAR RHYTHM. absent: Tachycardia, Systolic Murmur - GI/Abdominal Exam GI & Abdominal Exam: Normal Bowel Sounds, Soft. absent: Tenderness - Extremities Exam Extremities exam: normal inspection - Neurological Exam Neurological exam: Alert, Oriented x3 - Psychiatric Exam Psychiatric exam: Normal Affect, Normal Mood - Skin Skin Exam: Dry, Intact, Normal Color, Warm Discharge Plan - Discharge Medications Prescriptions: Meclizine [Antivert] 12.5 mg PO BID 3 Days #6 tab - Follow Up Plan Condition: STABLE Disposition: HOME/ ROUTINE Instructions: Chest Pain That Is Not Caused by the Heart (DC), Vertigo (a Type of Dizziness) (DC), Chest Pain (DC) Additional Instructions: Please follow up with your primary medical doctor, Mauro Gay at [address] [place] [address] on wednesday07/20/18. Please return to [facility] on July 25, 2018 for a Cardiac Stress Test. Expect a call 1-2 days before with detailed instructions prior to appointment. Please follow up with Dr. Wilcox, the tire and tube repairer, within 7 days of discharge. Please resume your home medications including Metformin 500mg BID A prescription for Meclizine 12.5mg BID has been given to you for your dizziness. In addition, be aware when starting new medications and possible exacerbation of your vertigo. Maintain adequate hydration. Do not make sudden positional changes; when lying down, first sit up for a few minutes and then stand to ensure balance. If symptoms worsen, promptly go to the nearest emergency department. Referrals: PCP,NO [Primary Care Provider] - <Thao Li - Last Filed: 07/18/18 16:48> Provider - Provider Date of Admission: 07/17/18 23:36 Attending physician: Thao Li MD Primary care physician: JACQUELYN PRIMARY CARE PROVIDER Consults: 07/18/18 01:05 Cardiology Consult Routine Comment: Consulting Provider: Pasquale Wilcox Consulting Physician: Pasquale Wilcox Reason for Consult: Chest Pain, r/o ACS 07/18/18 12:53 Diabetic Education Referral Routine Comment: Physician Instructions: Reason For Exam: assess medication compliance, understanding of DM Hospital Course - Lab Results Lab Results: Most Recent Lab Values WBC 8.3 10^3/uL (4.5-11.0) 07/18/18 06:30 RBC 5.01 10^6/uL (3.5-6.1) 07/18/18 06:30 Hgb 13.9 g/dL (14.0-18.0) L 07/18/18 06:30 Hct 41.6 % (42.0-52.0) L 07/18/18 06:30 MCV 83.0 fl (80.0-105.0) 07/18/18 06:30 MCH 27.7 pg (25.0-35.0) 07/18/18 06:30 MCHC 33.4 g/dl (31.0-37.0) 07/18/18 06:30 RDW 13.7 % (11.5-14.5) 07/18/18 06:30 Plt Count 186 10^3/uL (120.0-450.0) 07/18/18 06:30 MPV 11.8 fl (7.0-11.0) H 07/18/18 06:30 Neut % (Auto) 50.1 % (50.0-68.0) 07/18/18 06:30 Lymph % (Auto) 39.6 % (22.0-35.0) H 07/18/18 06:30 Cecil % (Auto) 7.2 % (1.0-6.0) H 07/18/18 06:30 Eos % (Auto) 2.9 % (1.5-5.0) 07/18/18 06:30 Baso % (Auto) 0.2 % (0.0-3.0) 07/18/18 06:30 Lymph # (Auto) 3.3 (1.2-3.4) 07/18/18 06:30 Cecil # (Auto) 0.6 (0.1-0.6) 07/18/18 06:30 Eos # (Auto) 0.2 (0.0-0.7) 07/18/18 06:30 Baso # (Auto) 0.02 K/mm3 (0.0-2.0) 07/18/18 06:30 Absolute Neuts (auto) 4.17 (1.4-6.5) 07/18/18 06:30 PT 11.6 SECONDS (9.4-12.5) 07/17/18 21:05 INR 1.05 07/17/18 21:05 APTT 33.0 Seconds (26.9-38.3) 07/17/18 21:05 Sodium 141 mmol/L (132-148) 07/18/18 06:30 Potassium 3.4 mmol/L (3.6-5.0) L 07/18/18 06:30 Chloride 107 mmol/L (98-107) 07/18/18 06:30 Carbon Dioxide 26 mmol/L (21-33) 07/18/18 06:30 Anion Gap 12 (10-20) 07/18/18 06:30 BUN 16 mg/dL (7-21) 07/18/18 06:30 Creatinine 0.7 mg/dl (0.8-1.5) L 07/18/18 06:30 Est GFR ( Amer) > 60 07/18/18 06:30 Est GFR (Non-Af Amer) > 60 07/18/18 06:30 POC Glucose (mg/dL) 207 mg/dL (65-110) H 07/17/18 21:35 Random Glucose 124 mg/dL (70-110) H 07/18/18 06:30 Hemoglobin A1c 7.1 % (4.2-6.5) H 07/18/18 06:30 Calcium 9.2 mg/dL (8.4-10.5) 07/18/18 06:30 Total Bilirubin 0.7 mg/dL (0.2-1.3) 07/18/18 06:30 AST 30 U/L (17-59) 07/18/18 06:30 ALT 33 U/L (7-56) 07/18/18 06:30 Alkaline Phosphatase 93 U/L (38-126) 07/18/18 06:30 Lactate Dehydrogenase 411 U/L (333-699) 07/18/18 14:00 Total Creatine Kinase 97 U/L (35-230) 07/18/18 14:00 Troponin I < 0.01 ng/mL 07/18/18 14:00 Total Protein 7.6 g/dL (5.8-8.3) 07/18/18 06:30 Albumin 4.1 g/dL (3.0-4.8) 07/18/18 06:30 Globulin 3.4 gm/dL 07/18/18 06:30 Albumin/Globulin Ratio 1.2 (1.1-1.8) 07/18/18 06:30 Triglycerides 212 mg/dL (35-160) H 07/18/18 06:30 Cholesterol 153 mg/dL (130-200) 07/18/18 06:30 LDL Cholesterol Direct 98 mg/dL (0-129) 07/18/18 06:30 HDL Cholesterol 25 mg/dL (29-60) L 07/18/18 06:30 Thyroxine (T4) 10.4 ug/dL (5.5-11.0) 07/18/18 06:30 TSH 3rd Generation 2.22 mIU/mL (0.46-4.68) 07/18/18 06:30 Attending/Attestation - Attestation I have personally seen and examined this patient.: Yes I have fully participated in the care of the patient.: Yes I have reviewed all pertinent clinical information, including history, physical exam and plan: Yes Notes (Text): 07/18/18 16:46 37 year old male with past medical history of diabetes who presented with complaint of chest pain and dizziness. Serial cardiac enzymes were negative and ACS was ruled out. He was seen by cardiology who recommended outpatient stress test. Patient initially complained of dizziness which improved with dose of meclizine. CT head was negative. Patient was able to ambulate with physical therapy. Patient is discharged home to follow up with pmd. Follow up with cardiology for outpatient stress test. Thao Li MD Hospitalist.
[2018-07-18 17:32] VITALS: PULSE 108
--- NOTE | 2018-07-18 18:06 | CON ---
DATE: 07/18/2018 CARDIOLOGY CONSULTATION HISTORY: The patient is a 37-year-old male, who presents with epigastric discomfort and palpitations. PAST MEDICAL HISTORY: The patient's past medical history is notable for diabetes mellitus. No previous cardiac history. He denies smoking. No hypertension. FAMILY HISTORY: No family history for CAD. SOCIAL HISTORY: The patient does not smoke. 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 REVIEW OF SYSTEMS: Review of systems is reviewed. No cardiac symptoms are noted. PHYSICAL EXAMINATION: VITAL SIGNS: On physical exam, blood pressure varies from 125-114. There are no orthostatic changes. NECK: Negative JVD. LUNGS: Lungs without rales. HEART: Heart reveal S1, S2. EXTREMITIES: Without edema. EKG is within normal limits. Troponins are negative x2. BUN and creatinine are unremarkable. Glucose 124. IMPRESSION: 1. Atypical chest pain. 2. No evidence for acute coronary syndrome. 3. Diabetes mellitus. 4. Dizziness. Given these findings, the patient's cardiac status is stable. There is no evidence for acute coronary syndrome. Given his diabetes. The patient should undergo a stress test. I have discussed with the patient. We will arrange for an outpatient stress test. His cardiac workup can be done as an outpatient. We will discontinue telemetry today. Pasquale Wilcox MD
== END 2018-07-18 19:33 | disposition home or self-care (01) ==
LOC: ED 20:55 → ERH 23:36 → 2RNO 07-18 01:16
PROVIDERS: ADMIT Internal Medicine; ATTEND Internal Medicine
DX: R07.89 Other chest pain (principal); H81.10 Benign paroxysmal vertigo, unspecified ear; E11.9 Type 2 diabetes mellitus without complications
CPT/HCPCS: 36415; 70450; 71045; 80053; 80061; 82550; 82948; 83036; 83615; 84436; 84443; 84484; 85025; 85027; 85610; 85730; 93005; 97161; G0378; G8978; G8979; G8980; J1650; J3480